=== PATIENT | male | born 1965 ===

== ENCOUNTER 2025-03-04 09:02 | Emergency (ER) | payer BC, OTHER ==
[2025-03-04] MEDS: Diphtheria,Pertussis(Acell),Tetanus Vaccine 0.5 ML Syringe IM ONE (09:44)
[2025-03-04] MEDS: Ampicillin/Sulbactam Na 3 GM in Sodium Chloride 0.9% 100 ML IV ONE (11:38)
[2025-03-04] MEDS: Take Home: Amoxicillin/Clavulanate K 875-125 MG Tab, 6 Tab Pack PO ONE (12:36)
[2025-03-04] MEDS: Take Home: Acetaminophen/oxyCODONE 325-5 MG, 5 Tab Pack PO ONE (12:36)
[2025-03-04] MEDS: Take Home: Acetaminophen/HYDROcodone 325-5 MG, 5 Tab Pack PO ONE (12:36)
== END 2025-03-04 12:44 | disposition home or self-care (01) ==
LOC: DL.ED 09:02
DX: S02.602A Fracture of unspecified part of body of left mandible, initial encounter for closed fracture (principal); I10 Essential (primary) hypertension; F17.210 Nicotine dependence, cigarettes, uncomplicated; W50.0XXA Accidental hit or strike by another person, initial encounter; Y93.89 Activity, other specified
CPT/HCPCS: 70486; 90471; 90715; 96365; 96372; 99283; A9270; J0295; J1171